=== PATIENT | male | born 1985 ===

== ENCOUNTER 2016-03-03 23:26 | Emergency (ER) | payer SELFPAY ==
[~2016-03-03] VITALS: Ht 167.6 cm; Wt 69.5 kg
[2016-03-03 23:38] VITALS: Ht 167.6 cm; Wt 69.5 kg
== END 2016-03-04 02:24 | disposition left against medical advice (07) ==
LOC: FTE 23:26
DX: Z53.21 Procedure and treatment not carried out due to patient leaving prior to being seen by health care provider (principal)